=== PATIENT | female | born 1995 | race Caucasian/White ===

== ENCOUNTER 2024-10-09 07:51 | Inpatient (IN) | payer OTHER, SELFPAY ==
[2024-10-09] MEDS ORDERED: hydrALAZINE 20 MG/ML VIAL SLOW IVP PRN ×3 (07:58→18:59)
[2024-10-09] MEDS ORDERED: Tranexamic Acid 1,000 MG/10 ML VIAL IVP PRN (08:18)
[2024-10-09] MEDS ORDERED: Lidocaine 1% (PF) 30 ML VIAL SC PRN (08:18)
[2024-10-09] MEDS ORDERED: HYDROcodone/Acetaminophen 5/325 mg Tablet PO PRN ×4 (08:18→18:59)
[2024-10-09] MEDS ORDERED: Ondansetron PF 4 MG/2 ML Vial IVP PRN ×2 (08:18→18:59)
[2024-10-09] MEDS ORDERED: Methylergonovine 0.2 MG/ML VIAL IM PRN (08:18)
[2024-10-09] MEDS ORDERED: Oxytocin 30 units/NS 500 ML 500 ML IV SCH (08:30)
[2024-10-09 08:35] LABS: Hematocrit 39.9 % (34.9-44.5); Hemoglobin 13.9 g/dL (12.0-15.5); Mean Corpuscular Hemoglobin 33.1 pg (27.0-33.0); Mean Corpuscular Volume 95.0 fL (81.6-98.3); Platelet Count 128 10x3/uL (150-450); Red Blood Cell (RBC) Count 4.20 10x6/uL (3.90-5.03); White Blood Cell (WBC) Count 7.82 10x3/uL (3.5-10.5)
[2024-10-09] MEDS ORDERED: Penicillin G Potassium 5 MILL.UNITS in Sodium Chloride 0.9% 100 ML IVPB SCH (09:00)
[2024-10-09 09:09] LABS: Syphilis Antibody Index 0.04 S/CO (<1.00 Non-Reactive)
[2024-10-09 09:11] LABS: Hep B Surf Ag - L&D Non-Reactive S/CO (NonReactive)
[2024-10-09] MEDS: Ibuprofen 800 MG TAB PO PRN (13:47)
[2024-10-09 13:55] VITALS: BMI 21.1
[2024-10-09] MEDS: Penicillin G 2.5 MILL.units 2.5 MILL.UNITS in Premix 1 BAG IVPB SCH (18:26)
[2024-10-09] MEDS: Oxytocin 30 units/NS 500 ML 500 ML ONE (18:26)
[2024-10-09] MEDS: Lidocaine 1% (PF) 30 ML VIAL ONE (18:26)
[2024-10-09] MEDS: Acetaminophen 500 MG TAB PO SCH ×2 (18:26→23:31)
[2024-10-09] MEDS: Penicillin G Potassium 5 MILL.UNITS VIAL ONE (18:26)
[2024-10-09] MEDS ORDERED: Bisacodyl 10 MG SUPP PR PRN (18:59)
[2024-10-09] MEDS ORDERED: Milk Of Magnesia 30 ML UDCUP PO PRN (18:59)
[2024-10-09] MEDS: Acetaminophen 500 MG TAB PO PRN (19:37)
[2024-10-09] MEDS: Benzocaine-Menthol 82.5 ML CAN TOP PRN (19:38)
[2024-10-09] MEDS: Ibuprofen 800 MG TAB PO SCH (21:34)
[2024-10-09] MEDS: Witch Hazel 100 PAD JAR TOP PRN (22:24)
[2024-10-10] MEDS: Acetaminophen 500 MG TAB PO PRN (01:34)
[2024-10-10 04:16] LABS: Hematocrit 29.1 % (34.9-44.5); Hemoglobin 10.1 g/dL (12.0-15.5)
[2024-10-10] MEDS: Ferrous Sulfate 325 MG TAB PO SCH (07:41)
[2024-10-11] MEDS: Boostrix 0.5 ML (Tdap) VIAL (>/=7 yrs of age) IM ONE (07:55)
[2024-10-11] MEDS: Ibuprofen 800 MG TAB PO SCH (17:28)
[2024-10-12 08:04] VITALS: BP 109/55; TEMP 98.3
== END 2024-10-12 17:30 | disposition home or self-care (01) | DRG 806 ==
LOC: CSHLD/OP 07:51 → CSHLD 07:52 → UNDODISIN 16:30 → CSHPP 17:30
PROVIDERS: ADMIT Obstetrics & Gynecology; ATTEND Obstetrics & Gynecology
PROC: 10E0XZZ Delivery of Products of Conception, External Approach (ICD-10-PCS; principal; 2024-10-09)
PROC: 0UQGXZZ Repair Vagina, External Approach (ICD-10-PCS; 2024-10-09)
DX: O48.0 Post-term pregnancy (principal); O71.4 Obstetric high vaginal laceration alone; Z37.0 Single live birth; Z3A.40 40 weeks gestation of pregnancy; O99.824 Streptococcus B carrier state complicating childbirth
CPT/HCPCS: 36415; 85014; 85018; 85027; 86780; 86850; 86900; 86901; 87340; J7120